=== PATIENT | male | born 1955 | race African-American/Black ===

== ENCOUNTER 2017-05-05 23:16 | Emergency (ER) | payer MEDICAID, OTHER ==
[~2017-05-05] VITALS: Ht 180.3 cm; Wt 118.0 kg
[~2017-05-05 23:16] MED LIST: ASPI-1158 PO; ATOR20TA PO; LISI10TA5 PO; SPIR25TA PO
[2017-05-05] MEDS ORDERED: ONDANSETRON HCL 4MG/2ML VIAL IV STA (23:49)
[2017-05-05] MEDS ORDERED: ASPIRIN 81MG TABLET PO STA (23:49)
[2017-05-05] MEDS ORDERED: MORPHINE SULFATE 4 MG/ML CPJ (NOT FOR IM USE) IV STA (23:49)
[2017-05-06 00:51] LABS: BASOPHILS % 1.1 % (0.0-2.0); EOSINOPHILS % 4.9 % (0.0-5.0); HEMATOCRIT. 45.1 % (42.0-52.0); HEMOGLOBIN. 14.9 g/dL (14.0-18.0); LYMPHOCYTES % 28.4 % (20.0-50.0); MEAN CORPUSCULAR HEMOGLOBIN 31.9 pg (28.0-32.0); MEAN CORPUSCULAR VOLUME 96.4 fL (80.0-94.0); MEAN PLATELET VOLUME 7.8 fl (7.4-10.4); NEUTROPHILS % 53.6 % (40.0-76.0); PLATELET 200 x1000/uL (130-400); RED BLOOD CELL COUNT 4.68 mill/uL (4.7-6.1)
[2017-05-06 01:01] LABS: PARTIAL THROMBOPLASTIN TIME 28.8 sec (24.0-34.0); PROTHROMBIN TIME 10.7 sec
[2017-05-06 01:11] LABS: CARBON DIOXIDE 24 mEq/L (21-32); CHLORIDE 108 mEq/L (98-107); ETHANOL BLOOD < 10 mg/dL; TROPONIN I 0.18 ng/mL (0.00-0.04)
[2017-05-06 02:45] VITALS: BP 112/70
== END 2017-05-06 02:47 | disposition left against medical advice (07) ==
LOC: ER 23:16 → CANBEDREQ 05-06 07:03
DX: R07.9 Chest pain, unspecified (principal); F14.10 Cocaine abuse, uncomplicated; I51.7 Cardiomegaly; I10 Essential (primary) hypertension; F17.210 Nicotine dependence, cigarettes, uncomplicated; Z95.0 Presence of cardiac pacemaker; Z98.62 Peripheral vascular angioplasty status
CPT/HCPCS: 36415; 71010; 80053; 83690; 83880; 84443; 84484; 85025; 85610; 85730; 93005; 99285; G0482; Z7610

== ENCOUNTER 2018-11-12 20:52 | Inpatient (IN) | payer MEDICAID, OTHER ==
[~2018-11-12] VITALS: Ht 185.4 cm; Wt 127.5 kg
[2018-11-12] MEDS ORDERED: ASPIRIN 325MG EC TABLET PO ONE (22:15)
[2018-11-12] MEDS ORDERED: LORAZEPAM 2MG/ML CPJ IV ONE (22:15)
[2018-11-12] MEDS ORDERED: NITROGLYCERIN OINT 1GM/INCH UDPKT TD ONE (22:15)
[2018-11-12 23:06] LABS: BASOPHILS % 0.7 % (0.0-2.0); EOSINOPHILS % 2.7 % (0.0-5.0); HEMATOCRIT. 48.1 % (42.0-52.0); HEMOGLOBIN. 16.1 g/dL (14.0-18.0); LYMPHOCYTES % 26.8 % (20.0-50.0); MEAN CORPUSCULAR HEMOGLOBIN 32.9 pg (28.0-32.0); MEAN CORPUSCULAR VOLUME 98.4 fL (80.0-94.0); MEAN PLATELET VOLUME 8.3 fl (7.4-10.4); MONOCYTES % 13.5 % (2.0-8.0); NEUTROPHILS % 56.3 % (40.0-76.0); PLATELET 176 x1000/uL (130-400); RED BLOOD CELL COUNT 4.89 mill/uL (4.7-6.1); RED CELL DISTRIBUTION WIDTH 12.6 % (11.6-14.6)
[2018-11-12 23:14] LABS: CHLORIDE 111 mEq/L (98-107)
[2018-11-13 08:30] VITALS: BP 120/62
[2018-11-13 09:00] VITALS: BP 164/76
[2018-11-13] MEDS ORDERED: ACETAMINOPHEN 325MG TABLET PO PRN (11:00)
[2018-11-13] MEDS ORDERED: ONDANSETRON HCL 4MG/2ML INJ IV PRN (11:00)
[2018-11-13 12:00] VITALS: BP 134/79
[2018-11-13] MEDS ORDERED: MORPHINE SULFATE 4 MG/ML CPJ (NOT FOR IM USE) IV PRN (12:00)
[2018-11-13] MEDS: ASPIRIN 81MG TABLET PO SCH (12:18)
[2018-11-13] MEDS: FUROSEMIDE 40MG/4ML VIAL IVP SCH (15:20)
[2018-11-13] MEDS: ISOSORB DINIT/HYDRALAZINE HCL 20/37.5MG TABLET PO SCH ×2 (15:21→21:16)
[2018-11-13 15:41] VITALS: BP 164/76
[2018-11-13 18:10] VITALS: BP 138/76
[2018-11-13 18:12] LABS: CLARITY URINE CLOUDY (CLEAR); COLOR URINE YELLOW (YELLOW); KETONES URINE NEGATIVE (NEGATIVE); LEUKOCYTE ESTERASE URINE NEGATIVE (NEGATIVE); NITRITE URINE NEGATIVE (NEGATIVE); OCCULT BLOOD URINE NEGATIVE (NEGATIVE); PROTEIN URINE NEGATIVE (NEGATIVE); SPECIFIC GRAVITY URINE 1.022 (1.005-1.030)
[2018-11-13 18:27] LABS: *BENZODIAZEPINES SCREEN URINE NEGATIVE (NEGATIVE); *COCAINE SCREEN URINE PRESUMTIVE POSITIVE (NEGATIVE); METHADONE URINE SCREEN NEGATIVE (NEGATIVE)
[2018-11-13 18:28] LABS: *AMPHETAMINES SCREEN URINE NEGATIVE (NEGATIVE); *BARBITURATES SCREEN URINE NEGATIVE (NEGATIVE); CANNABINOID URINE SCREEN NEGATIVE (NEGATIVE); OPIATES URINE SCREEN NEGATIVE (NEGATIVE); PHENCYCLIDINE URINE SCREEN NEGATIVE (NEGATIVE)
[2018-11-13 20:00] VITALS: BP 116/80
[2018-11-13] MEDS: LISINOPRIL 10MG TABLET PO SCH (21:16)
[2018-11-13] MEDS: ATORVASTATIN CALCIUM 20MG TABLET PO SCH (21:16)
[2018-11-14] VITALS: BP 117/45
[2018-11-14 04:00] VITALS: BP 109/59
[2018-11-14] MEDS: ISOSORB DINIT/HYDRALAZINE HCL 20/37.5MG TABLET PO SCH ×3 (06:45→22:00)
[2018-11-14 06:49] LABS: BASOPHILS % 0.7 % (0.0-2.0); EOSINOPHILS % 3.6 % (0.0-5.0); HEMATOCRIT. 45.3 % (42.0-52.0); HEMOGLOBIN. 15.3 g/dL (14.0-18.0); LYMPHOCYTES % 26.4 % (20.0-50.0); MEAN CORPUSCULAR HEMOGLOBIN 33.3 pg (28.0-32.0); MEAN CORPUSCULAR VOLUME 98.7 fL (80.0-94.0); MEAN PLATELET VOLUME 8.6 fl (7.4-10.4); MONOCYTES % 8.3 % (2.0-8.0); PLATELET 195 x1000/uL (130-400); RED BLOOD CELL COUNT 4.59 mill/uL (4.7-6.1); RED CELL DISTRIBUTION WIDTH 12.6 % (11.6-14.6)
[2018-11-14 07:13] LABS: CHLORIDE 106 mEq/L (98-107)
[2018-11-14 08:00] VITALS: BP 101/40
[2018-11-14] MEDS: LISINOPRIL 10MG TABLET PO SCH ×2 (09:00→20:44)
[2018-11-14] MEDS: ASPIRIN 81MG TABLET PO SCH (09:05)
[2018-11-14] MEDS: FUROSEMIDE 40MG/4ML VIAL IVP SCH (09:05)
[2018-11-14] MEDS: HYDROCODONE/ACETAMINOPHEN 5/325MG TABLET PO PRN (09:06)
[2018-11-14 12:00] VITALS: BP 120/67
[2018-11-14 16:00] VITALS: BP 95/46
[2018-11-14] MEDS: ENOXAPARIN 30MG/0.3ML SYR SUBCUT SCH (17:34)
[2018-11-14 20:00] VITALS: BP 110/60
[2018-11-14] MEDS: ATORVASTATIN CALCIUM 20MG TABLET PO SCH (20:44)
[2018-11-15] VITALS: BP 105/55
[2018-11-15 04:00] VITALS: BP 120/69
[2018-11-15] MEDS: ISOSORB DINIT/HYDRALAZINE HCL 20/37.5MG TABLET PO SCH (05:24)
[2018-11-15] MEDS: ENOXAPARIN 30MG/0.3ML SYR SUBCUT SCH (05:24)
[2018-11-15 07:28] LABS: BASOPHILS % 0.7 % (0.0-2.0); EOSINOPHILS % 3.9 % (0.0-5.0); HEMATOCRIT. 47.4 % (42.0-52.0); HEMOGLOBIN. 15.7 g/dL (14.0-18.0); LYMPHOCYTES % 29.1 % (20.0-50.0); MEAN CORPUSCULAR HEMOGLOBIN 32.5 pg (28.0-32.0); MEAN CORPUSCULAR VOLUME 98.3 fL (80.0-94.0); MEAN PLATELET VOLUME 8.6 fl (7.4-10.4); MONOCYTES % 13.3 % (2.0-8.0); PLATELET 215 x1000/uL (130-400); RED BLOOD CELL COUNT 4.82 mill/uL (4.7-6.1); RED CELL DISTRIBUTION WIDTH 12.6 % (11.6-14.6)
[2018-11-15 08:00] VITALS: BP 129/66
[2018-11-15 08:32] LABS: CHLORIDE 106 mEq/L (98-107)
[2018-11-15] MEDS: FUROSEMIDE 40MG/4ML VIAL IVP SCH (08:37)
[2018-11-15] MEDS: LISINOPRIL 10MG TABLET PO SCH (08:37)
[2018-11-15] MEDS: HYDROCODONE/ACETAMINOPHEN 5/325MG TABLET PO PRN (08:38)
[2018-11-15] MEDS: ASPIRIN 81MG TABLET PO SCH (08:38)
[2018-11-15 12:00] VITALS: BP 107/65
[2018-11-15 14:16] VITALS: BP 107/65
== END 2018-11-15 15:00 | disposition home or self-care (01) | DRG 816 ==
LOC: ER 20:52 → 5WST 23:52 → EDBEDREQ 23:55 → EDBEDREQTM 23:55 → ENRESERV 11-13 07:08
PROVIDERS: ADMIT Internal Medicine; ATTEND Internal Medicine
DX: T40.5X1A Poisoning by cocaine, accidental (unintentional), initial encounter (principal); E87.8 Other disorders of electrolyte and fluid balance, not elsewhere classified; I24.9 Acute ischemic heart disease, unspecified; I50.9 Heart failure, unspecified; I11.0 Hypertensive heart disease with heart failure; I25.10 Atherosclerotic heart disease of native coronary artery without angina pectoris; F17.210 Nicotine dependence, cigarettes, uncomplicated; E78.5 Hyperlipidemia, unspecified; I25.5 Ischemic cardiomyopathy; E66.9 Obesity, unspecified; Z71.6 Tobacco abuse counseling; Z71.3 Dietary counseling and surveillance; Z79.82 Long term (current) use of aspirin; Z79.899 Other long term (current) drug therapy; I25.2 Old myocardial infarction; Y92.89 Other specified places as the place of occurrence of the external cause; Z91.19 Patient's noncompliance with other medical treatment and regimen; Z95.5 Presence of coronary angioplasty implant and graft; Z95.810 Presence of automatic (implantable) cardiac defibrillator; Z68.37 Body mass index [BMI] 37.0-37.9, adult; Z88.0 Allergy status to penicillin; Z82.49 Family history of ischemic heart disease and other diseases of the circulatory system
CPT/HCPCS: 36415; 71045; 80048; 80061; 80305; 83735; 83880; 84443; 84484; 93005; 93306; 96374; 97162; 99285; J1650; J1940; J2060